=== PATIENT | male | born 1935 | race Caucasian/White ===

== ENCOUNTER 2017-02-05 15:21 | Emergency (ER) | payer MEDICARE, OTHER ==
[~2017-02-05] VITALS: Ht 180.3 cm; Wt 93.1 kg
[~2017-02-05 15:21] MED LIST: ALBU8.5H4 IH; ASP81TEC PO; CIPR500T95 PO; GLU500 PO; LOVA20TA7 PO; TELM80TA PO; TIOT18CA IH
--- NOTE | 2017-02-05 15:22 | ED.REPORT ---
HPI-Extremity Problem Lower Date of Service Feb 05, 2017 ED Provider: Dr. Navas Pt is an 81 year old male with a hx of a DM, HTN, afib, hip prosthetic and hip dislocations on Coumadin presenting to the ED complaining of right hip pain and probable dislocation. He reports that he has dislocated his hip 4 times. Medics state that he tripped over a blackberry combs, fell down and was lying on the side of the road for 45 minutes before somebody found him. He denies any head injury or any other symptoms at this time. Nursing Notes Stated Complaint: RT HIP DISLOCATION Chief Complaint: Rt hip pain Nursing Notes Reviewed: Yes Allergies: Coded Allergies: morphine (Verified Allergy, Unknown, UNKNOWN, 12/05/11) ketamine (Verified Adverse Reaction, Severe, "becomes violent", 02/12/16) Scheduled Albuterol-Expunged Drug, Do Not Renew! (Albuterol-Expunged Drug, Do Not Renew!) 8.5 Gm Hfa.aer.ad 2 PUFFS IH Q4 Aspirin-Expunged Drug, Do Not Renew! (Aspirin EC-Expunged Drug, Do Not Renew!) 81 Mg Tablet 81 MG PO DAILY INSTRUCTED TO STOP Ciprofloxacin (Cipro) 500 Mg Tablet 500 MG PO BID Lovastatin-Expunged Drug, Do Not Renew! (Mevacor-Expunged Drug, Do Not Renew!) 20 Mg Tablet 20 MG PO DAILY Metformin-Expunged Drug, Do Not Renew! (Metformin-Expunged Drug, Do Not Renew!) 500 Mg Tablet 500 MG PO DAILY Telmisartan-Expunged Drug, Do Not Renew! (Micardis-Expunged Drug, Do Not Renew! ) 80 Mg Tablet 80 MG PO DAILY Tiotropium Br-Expunged Drug, Do Not Renew! (Spiriva-Expunged Drug, Do Not Renew! ) 18 Mcg/Puff Pack 18 MCG IH DAILY Scheduled PRN oxyCODONE-Acetaminophen 5-325 mg (oxyCODONE-Acetaminophen 5-325 mg) 1 Each Tablet 1 TAB PO Q4H PRN PRN For Pain General Time Seen by MD: 15:21 Chief Complaint Hip injury right Hx Obtained From: Patient, EMS Arrived By: Ambulance Onset Occurred: Just prior to arrival Symptom Duration: Since onset Caused by: Fall on ground Location: : Hip right Quality: Painful Severity: Current: Moderate Severity: Maximum: Severe Recent Healthcare: No recent doctor visit, No recent hospitalization Similar Sx Previous: Yes Past Medical History Past Medical History Chronic Stage 3 Renal Disease Possible mild aortic stenosis Right hip prosthetic On Coumadin Afib Reports: Diabetes mellitus, Hypertension Past Surgical History Four previous dislocations of R hip and 2 surgeies on R hip Lower back surgery Reports: Knee replacement Family History Non contributory Smoking History Former Smoker Ambulatory Status Independent Review of Systems Constitutional: Denies: Weakness - generalized Musculoskeletal: Reports: Joint pain (Right hip) Neurologic: Denies: Change LOC, Headache Complete sys rev & neg: except as marked. Respiratory: Denies: Shortness of breath Cardiovascular: Denies: Chest pain GI: Denies: Abdominal pain, Vomiting Physical Exam Initial Vital Signs Vital Signs (First) Date Time Temp Pulse Resp B/P Pulse Ox O2 Delivery O2 Flow Rate FiO2 02/05/17 15:28 36.8 70 20 157/82 95 Nasal Cannula 2 Initial VS: Reviewed General/Constitutional: Well-developed, Well-nourished Head / Eyes: Atraumatic, Normocephalic, PERRL ENT: Mucous membranes moist, Conjunctiva normal, No scleral icterus Respiratory: Breath sounds normal, Clear to auscultation, No respiratory distress Abdomen / GI: Soft, Non-tender, No guarding, No rebound, No distention Upper Extremities: Vascular intact, Neuro intact, No swelling, No tenderness Skin: Warm, Dry, No cyanosis Neurologic: Alert, Oriented, Nonfocal Psychiatric: Mood/affect normal, Behavior normal, Normal thought content Lower Extremity / Pelvis / MS: Neurologic intact, Vascular intact Internally rotated right hip Cardiovascular: Heart rate NL, Regular rhythm Heart Sounds / Murmur: Positive: Systolic murmur present.. (II/) Interpretation & Diagnostics Lab Results Interpretation Result Diagram: 02/05/17 1650 02/05/17 1650 Test 02/05/17 16:50 White Blood Count 9.9th/mm3 (3.8-10.1) Red Blood Count 4.45mil/mm3 (4.40-5.80) Hemoglobin 14.0g/dL (13.8-17.2) Hematocrit 42.8% (41.0-50.0) Mean Corpuscular Volume 96.2fL (81-100) Mean Corpuscular Hemoglobin 31.5pg (27.0-35.0) Mean Corpuscular Hemoglobin Concent 32.7% (32.0-37.0) Red Cell Distribution Width 14.7% (12.3-15.4) Platelet Count 153bil/L (150-400) Neutrophils (%) (Auto) 74.6% (40-74) Lymphocytes (%) (Auto) 12.3% (14-46) Monocytes (%) (Auto) 10.1% (4-12) Eosinophils (%) (Auto) 1.3% (0-5) Basophils (%) (Auto) 0.4% (0-3) Prothrombin Time 24.8sec (8.1-12.5) Prothromb Time International Ratio 2.28ratio Sodium Level 141mEq/L (134-144) Potassium Level 4.8mEq/L (3.5-5.2) Chloride Level 105mEq/L (97-108) Carbon Dioxide Level 19mmol/L (18-29) Blood Urea Nitrogen 24mg/dL (8-27) Creatinine 1.22mg/dL (0.76-1.27) Estimat Glomerular Filtration Rate 61mL/min (>59) Glucose Level 114mg/dL (60-99) Calcium Level 8.9mg/dL (8.5-10.1) Total Bilirubin 1.1mg/dL (0.0-1.2) Aspartate Amino Transf (AST/SGOT) 40U/L (0-50) Alanine Aminotransferase (ALT/SGPT) 26U/L (0-44) Alkaline Phosphatase 68U/L (25-160) Total Protein 6.8g/dL (6.4-8.4) Albumin 3.3g/dL (3.4-5.0) Hold Otero Top Tube Received (Received) ECG Interpretation ECG Interpretation: Atrial fibrillation. Ventricular premature complex. Borderline ST depression, diffuse leads. Time: 16:38 Interpreted by: ED physician Abnormal Rate: 50 (54) X-Ray Interpretation Xray Interpretation: IMPRESSION: Posterosuperior right hip dislocation, status post total hip arthroplasty. No displaced fractures. Dictated by: Bruce Schmitt M.D. on 02/05/2017 at 15:18 XRAY RIGHT HIP POST REDUCTION: IMPRESSION: Appropriate alignment of the right total hip arthroplasty metallic components. No fractures are evident. Dictated by: Bruce Schmitt M.D. on 02/05/2017 at 15:21 X-Ray Ordered: Hip right Interpretation / Wet Read by: Interpret - Radiologist Procedures Proced Mod Sedation/Analgesia Time: 15:50 Procedure Performed by: ED physician Sedation Time: 10 - 15 min (11) Consent / Setup: Informed consent provided, Time-out performed, Hand hygiene observed, Stand sterile technique, Position supine Indication: Hip reduction Preparation: youth nutritional monitor applied, Pulse oximeter applied, Constant attendance, IV access established, Eval last meal time, Supplemental oxygen, Procedure explained, Suction available, End tidal CO2 mon applied VS Prior to Procedure: All vital signs normal Airway Exam: Normal facial anatomy CVS/Resp Exam: Normal breath sounds Neuro Exam: Alert, No acute distress, Responsive Sedation: Sedation: Propofol ASA Classification: 1 normal healthy patient Response During Procedure: Handled secretions adeq, Maintained airway well, Oxygenation stable, Sedation appropriate, Vital signs stable Reversal: None required Mental Status After Procedure: Alert, Oriented X3, Response to verbal stim, Normal per age, At patient's baseline Post-Procedure: Alert prior to discharge Attestation: I performed procedure, I performed sedation Reduction Post Dislocation Hip Good dorsalis pedis and posterior tibial pulses post reduction. Procedure: Closed reduction of non-buckland right hip Time: 15:50 Procedure Performed by: ED physician Consent / Timeout / Setup: Consent from patient, Time-out performed, Oxygen administered, Pulse oximeter applied, youth nutritional monitor applied, Hand hygiene observed, Stand sterile technique Procedural Sedation/Analgesia: Sedation: Propofol Which Hip and Technique: Right hip Neurovascular: Intact pre-procedure, Intact post-procedure Post-Procedure / Complications: Reduced per examination, Procedure successful, Condition improved, Tolerated procedure well, Patient stable Re-Eval/Medical Decision Re-Evaluation/Progress #1: Time of Eval: 15:33 Patient Status: Condition improved Re-Evaluation/Progress Note: Discussed plan for procedural sedation and dislocation reduction. Pt consents to the procedure. Re-Evaluation/Progress #2: Time of Eval: 15:40 Patient Status: Condition improved Re-Evaluation/Progress Note: Pt tolerated procedure well. Hip dislocation reduced. Re-Evaluation/Progress #3: Time of Eval: 16:10 Patient Status: Condition improved Re-Evaluation/Progress Note: Pt feeling much better. Re-Evaluation/Progress #4: Time of Eval: 17:01 Patient Status: Condition improved Re-Evaluation/Progress Note: Checked the pt's orthostatics. Discussed plan for discharge. Pt understands and agrees with plan. Counseled Regarding: Diagnosis, Lab results, Need for follow-up, When/why to return to ED Discharge & Departure Impression: Primary Impression: Hip dislocation, right Encounter type: initial encounter Qualified Code: S73.004A - Unspecified dislocation of right hip, initial encounter Additional Impression: Status post closed reduction of dislocated total hip prosthesis Disposition: Home Discharge Condition All VS Reviewed: Yes Condition: Improved Patient Instructions: Hip Dislocation (ED) Additional Instructions: Your right hip was dislocated. We were able to reduce it in the ER today. Return to the ER if you develop any new or worsening symptoms. Take pain medication as prescribed. Do not drink alcohol, drive, or operate heavy machinery while taking the pain medication. Follow-up with the orthopedist to discuss further treatment. Referrals: Maria Alejandra Thompson PA-C (PCP) Abby Kinney MD Attestation Portions of this note were transcribed by Viktoria Bobby. I, Dr. Navas personally performed the history, physical exam and medical decision-making; I reviewed and confirmed the accuracy of the information in the transcribed note. Signed by: Corinne Henry, 02/05/17 at 1716. copies to: Maria Alejandra Thompson PA-C; Abby Kinney MD, Kirk H MD Feb 05, 2017 15:22 VIKTORIA BOBBY Feb 05, 2017 15:25
[2017-02-05 15:28] VITALS: BP 157/82; PULSE 70; RESP 20; O2SAT 95
[2017-02-05] MEDS ORDERED: HYDROmorphone 1 mg/mL Inj IVPUSH PRN (15:30)
[2017-02-05] MEDS ORDERED: Propofol 10 mg/mL 20 mL Inj IVPUSH ONE (15:30)
--- NOTE | 2017-02-05 16:21 | DRSVH ---
PROCEDURE: X-RAY PELVIS W/LAT HIP (RT) ([id number]) INDICATIONS: TRAUMA TECHNIQUE: AP pelvis with lateral view(s) of the right hip(s). COMPARISON: [facility], CR, XR HIP 2VW RT, 02/12/2016, 18:22. [facility], CR , XR PELVIS W LATERAL HIP RT, 02/05/2017, 15:49. FINDINGS: Bones: Postoperative changes are present related to a right total hip arthroplasty. The femoral comp onent is dislocated superiorly and posteriorly with respect to the acetabular component. No displace d fractures are evident on the provided images. Severe degenerative changes of the included lower cheri mbar spine and moderate degenerative changes of the sacroiliac joints and left hip are noted. Soft tissues: The visualized bowel gas pattern is normal. No suspicious soft tissue calcifications. IMPRESSION: Posterosuperior right hip dislocation, status post total hip arthroplasty. No displaced fractures. Dictated by: Bruce Schmitt M.D. on 02/05/2017 at 15:18 Approved by: Bruce Schmitt M.D. on 02/05/2017 at 15:19
--- NOTE | 2017-02-05 16:24 | DRSVH ---
PROCEDURE: X-RAY PELVIS W/LAT HIP (RT) ([id number]) INDICATIONS: post reduction TECHNIQUE: AP pelvis with lateral view(s) of the right hip(s). COMPARISON: [facility], , XR PELVIS W LATERAL HIP RT, 02/05/2017, 15:40. FINDINGS: Interval closure reduction of the right hip is identified with the femoral component appropriately al igned with respect to the acetabulum. No periprosthetic fractures are identified. Degenerative cordova ges of the lumbosacral spine and left hip are unchanged. The overlying soft tissues are grossly unre markable. IMPRESSION: Appropriate alignment of the right total hip arthroplasty metallic components. No fractu res are evident. Dictated by: Bruce Schmitt M.D. on 02/05/2017 at 15:21 Approved by: Bruce Schmitt M.D. on 02/05/2017 at 15:22
[2017-02-05 16:55] LABS: BASOPHILS % (AUTO) 0.4 % (0-3); EOSINOPHILS % (AUTO) 1.3 % (0-5); MONOCYTES % (AUTO) 10.1 % (4-12); Mean Corpuscular Hemoglobin 31.5 pg (27.0-35.0); Mean Corpuscular Volume 96.2 fL (81-100); NEUTROPHILS % (AUTO) 74.6 % (40-74); Platelet Count 153 bil/L (150-400)
[2017-02-05 17:09] LABS: INR 2.28 ratio
[2017-02-05] MEDS ORDERED: OXYC1TAB24 PO (17:16)
[2017-02-05 17:21] VITALS: BP 139/69; PULSE 52; RESP 17; O2SAT 98
== END 2017-02-05 17:22 | disposition home or self-care (01) ==
LOC: SED 15:21
DX: T84.022A Instability of internal right knee prosthesis, initial encounter (principal); W01.0XXA Fall on same level from slipping, tripping and stumbling without subsequent striking against object, initial encounter; Y93.9 Activity, unspecified; Y92.410 Unspecified street and highway as the place of occurrence of the external cause; Y99.8 Other external cause status; I13.10 Hypertensive heart and chronic kidney disease without heart failure, with stage 1 through stage 4 chronic kidney disease, or unspecified chronic kidney disease; N18.3 Chronic kidney disease, stage 3 (moderate); E11.9 Type 2 diabetes mellitus without complications; I48.91 Unspecified atrial fibrillation; Z79.01 Long term (current) use of anticoagulants; Z87.891 Personal history of nicotine dependence; Z79.84 Long term (current) use of oral hypoglycemic drugs; Z79.82 Long term (current) use of aspirin; Z79.899 Other long term (current) drug therapy; Z88.5 Allergy status to narcotic agent; Z88.8 Allergy status to other drugs, medicaments and biological substances

== ENCOUNTER 2017-02-07 10:49 | Emergency (ER) | payer MEDICARE, OTHER ==
[~2017-02-07 10:49] MED LIST changes: +OXYC1TAB24 PO
--- NOTE | 2017-02-07 11:18 | ED.REPORT ---
HPI-Hip/Pelvis Prob/Inj Date of Service Feb 07, 2017 ED Provider: Abdi Costa DO The patient is an 81 year old male with history of chronic renal disease, diabetes mellitus, hypertension, atrial fibrillation on Coumadin, and previous right hip replacement, who was brought to the emergency department by EMS for a right hip injury. The patient was getting up from the couch when he twisted his leg and felt his right hip pop out. He has been unable to walk since onset. Medics administered a total of 150 micc Fentanyl for pain control. The patient was seen here a few days ago for the same. He denies any other injuries. Nursing Notes Stated Complaint: RIGHT HIP OUT OF PLACE Nursing Notes Reviewed: Yes Allergies: Coded Allergies: morphine (Verified Allergy, Unknown, UNKNOWN, 12/05/11) ketamine (Verified Adverse Reaction, Severe, "becomes violent", 02/12/16) Scheduled Albuterol-Expunged Drug, Do Not Renew! (Albuterol-Expunged Drug, Do Not Renew!) 8.5 Gm Hfa.aer.ad 2 PUFFS IH Q4 Aspirin-Expunged Drug, Do Not Renew! (Aspirin EC-Expunged Drug, Do Not Renew!) 81 Mg Tablet 81 MG PO DAILY INSTRUCTED TO STOP Ciprofloxacin (Cipro) 500 Mg Tablet 500 MG PO BID Lovastatin-Expunged Drug, Do Not Renew! (Mevacor-Expunged Drug, Do Not Renew!) 20 Mg Tablet 20 MG PO DAILY Metformin-Expunged Drug, Do Not Renew! (Metformin-Expunged Drug, Do Not Renew!) 500 Mg Tablet 500 MG PO DAILY Telmisartan-Expunged Drug, Do Not Renew! (Micardis-Expunged Drug, Do Not Renew! ) 80 Mg Tablet 80 MG PO DAILY Tiotropium Br-Expunged Drug, Do Not Renew! (Spiriva-Expunged Drug, Do Not Renew! ) 18 Mcg/Puff Pack 18 MCG IH DAILY Scheduled PRN oxyCODONE-Acetaminophen 5-325 mg (oxyCODONE-Acetaminophen 5-325 mg) 1 Each Tablet 1 TAB PO Q4H PRN PRN For Pain General Time Seen by Provider: 11:19 Chief Complaint Hip injury right Hx Obtained From: Patient, EMS Arrived By: Ambulance Onset Occurred: Just prior to arrival Symptom Duration: Since onset Progression Since Onset: Constant Quality: Painful Severity: Current: Severe Severity: Maximum: Severe Recent Healthcare: No recent hospitalization, Recent doctor visit Similar Sx Previous: Yes Past Medical History Past Medical History Chronic Stage 3 Renal Disease Possible mild aortic stenosis Right hip prosthetic On Coumadin Afib Reports: Diabetes mellitus, Hypertension Past Surgical History Multiple previous dislocations of R hip and 2 surgeries on R hip Lower back surgery Reports: Knee replacement Family History Non contributory Smoking History Former Smoker Social History Other Social History: Local resident Ambulatory Status Independent Review of Systems Musculoskeletal: Reports: Extremity pain, Joint pain, Denies: Back pain, Neck pain Neurologic: Denies: Headache Complete sys rev & neg: except as marked. Physical Exam Initial Vital Signs Vital Signs (First) Date Time Temp Pulse Resp B/P Pulse Ox O2 Delivery O2 Flow Rate FiO2 02/07/17 11:25 36.5 54 24 130/42 95 Room Air Initial VS: Reviewed ENT: Mucous membranes moist, Conjunctiva normal, No scleral icterus Neck: Supple, Non-tender, Full range of motion Respiratory: Breath sounds normal, Clear to auscultation, No respiratory distress Abdomen / GI: Soft, Non-tender, No guarding, No rebound, No distention Lymphatic: No lymphadenopathy Upper Extremities: Vascular intact, Neuro intact, No swelling, No tenderness Skin: Warm, Dry, No cyanosis Neurologic: Alert, Oriented, Nonfocal Psychiatric: Mood/affect normal, Behavior normal, Normal thought content Lower Extremity / Pelvis / MS: Neurologic intact, Vascular intact right hip is shortened, internally rotated, and tender. General/Constitutional: Awake, Alert, Cooperative Head / Eyes: Atraumatic, Normocephalic Pinpoint pupils Heart Rate / Rhythm: Positive: Irreg irregular rhythm Heart Sounds / Murmur: Positive: Systolic murmur present.. (II/, at the right upper sternal border) Interpretation & Diagnostics Interpretation & Diagnostics: Reviewed labs from 2 days ago, INR was 2.2 ECG Interpretation ECG Interpretation: Atrial fibrillation with a rate of [address] changes Time: 11:55 X-Ray Interpretation Xray Interpretation: IMPRESSION: Right hip dislocation. Dictated by: Jacklyn Yee M.D. on 02/07/2017 at 11:47 X-Ray Ordered: Pelvis Interpretation / Wet Read by: Interpret - Radiologist Xray Interpretation: IMPRESSION: Successful reduction of the right hip. Dictated by: Jacklyn Yee M.D. on 02/07/2017 at 12:34 X-Ray Ordered: Pelvis, Hip right Interpretation / Wet Read by: Interpret - Radiologist Procedures Proced Mod Sedation/Analgesia Time: 12:17 Procedure Performed by: ED physician Sedation Time: 10 - 15 min Consent / Setup: Informed consent provided, Consent from patient, Time-out performed, Hand hygiene observed, Position supine Indication: Hip reduction Preparation: compliance monitor applied, Pulse oximeter applied, Constant attendance, IV access established, Eval last meal time, Supplemental oxygen, Procedure explained, Suction available, End tidal CO2 mon applied VS Prior to Procedure: All vital signs normal Mallampati: Class & Anatomy: 3 hard pal/base uvula Airway Exam: Normal anatomy CVS/Resp Exam: Normal breath sounds, Normal heart sounds Neuro Exam: Alert, No acute distress Sedation: Sedation: Propofol (60) Response During Procedure: Handled secretions adeq, Maintained airway well, Oxygenation stable, Sedation appropriate, Vital signs stable Complications During/After: None Reversal: None required Mental Status After Procedure: Alert, Oriented X3, Response to verbal stim, Normal per age, At patient's baseline Post-Procedure: Alert prior to discharge, Ambulatory with assist, Pt rtn pre- proc baseline, Vital signs normal Attestation: I performed procedure, I performed sedation Reduction Post Dislocation Hip Time: 12:20 Procedure Performed by: ED physician Consent / Timeout / Setup: Informed consent provided, Consent from patient, Time-out performed, Oxygen administered, Pulse oximeter applied, compliance monitor applied, Hand hygiene observed Procedural Sedation/Analgesia: Sedation: Propofol (60) Which Hip and Technique: Right hip Neurovascular: Intact pre-procedure, Intact post-procedure Post-Procedure / Complications: Reduced per examination, Procedure successful, X-ray disloc reduced, Hip immobilized, Condition improved, Tolerated procedure well, Patient stable Re-Eval/Medical Decision Med Decision/Clinical Course Recurrent prosthetic hip dislocation reduced under procedural sedation. Neurovascularly intact after procedure, given knee immobilizer. Will be discharged. Return precautions given. Patient is asymptomatic to his bradycardia, he is instructed to follow-up closely with outpatient primary care or cardiology. Source of Hx: Old records, EMS Summary of Info: reviewed labs from 2 days prior Re-Evaluation/Progress #1: Time of Eval: 11:36 Re-Evaluation/Progress Note: Discussed procedure with the patient. He signed the consent forms. Re-Evaluation/Progress #2: Time of Eval: 12:14 Re-Evaluation/Progress Note: Rechecked the patient. Respiratory therapy is at bedside. Will start procedure. Re-Evaluation/Progress #3: Time of Eval: 12:21 Re-Evaluation/Progress Note: Paged x-ray. Re-Evaluation/Progress #4: Time of Eval: 13:02 Re-Evaluation/Progress Note: Rechecked the patient. He is awake and alert. Discussed plan for discharge. All questions were addressed. Counseled Regarding: Diagnosis, Need for follow-up, When/why to return to ED Discharge & Departure Impression: Primary Impression: Hip dislocation, right Encounter type: subsequent encounter Qualified Code: S73.004D - Unspecified dislocation of right hip, subsequent encounter Disposition: Home Discharge Condition All VS Reviewed: Yes Condition: Stable Patient Instructions: Hip Dislocation (ED) Additional Instructions: Thank you for entrusting us with your care today. We were able to put your hip back into place. Use the knee immobilizer to help prevent a future dislocation. Followup with your orthopedist to discuss further management of this. You should speak with your regular doctor about your low resting heart rate. Return to the emergency department for recurrent symptoms, numbness, weakness, or any other new or concerning symptoms. Referrals: Maria Alejandra Thompson PA-C (PCP) Scribe Attestation Portions of this note were transcribed by Bonnie Bruno. I, Dr. Costa personally performed the history, physical exam and medical decision-making; I reviewed and confirmed the accuracy of the information in the transcribed note. Signed by: Corinne Shepherd, 02/07/2017 at 1400. copies to: Maria Alejandra Thompson PA-C, Timothy S DO Feb 07, 2017 11:18 Bonnie Bruno Feb 07, 2017 11:22
[2017-02-07 11:25] VITALS: BP 130/42; PULSE 54; RESP 24; O2SAT 95
[2017-02-07] MEDS ORDERED: fentaNYL-PF 50 mCg/mL 2 mL Inj IVPUSH PRN (11:25)
[2017-02-07] MEDS ORDERED: Ondansetron 2 mg/mL 2 mL Inj IVPUSH PRN (11:25)
--- NOTE | 2017-02-07 11:49 | DRSVH ---
PROCEDURE: X-RAY PELVIS, ONE OR TWO VIEWS ([id number]) INDICATIONS: dislocation TECHNIQUE: Single view(s) of the pelvis acquired. COMPARISON: [facility], CR, XR PELVIS W LATERAL HIP RT, 02/05/2017, 15:49. FINDINGS: Bones: There is a dislocation of the right hip arthroplasty. No acute fracture. Soft tissues: Visualized bowel gas pattern is normal. No suspicious soft tissue calcifications. IMPRESSION: Right hip dislocation. Dictated by: Jacklyn Yee M.D. on 02/07/2017 at 11:47 Approved by: Jacklyn Yee M.D. on 02/07/2017 at 11:48
[2017-02-07] MEDS ORDERED: Propofol 10 mg/mL 20 mL Inj IVPUSH ONE (11:55)
--- NOTE | 2017-02-07 12:36 | DRSVH ---
PROCEDURE: X-RAY RIGHT HIP, ONE VIEW ([id number]) INDICATIONS: reduction TECHNIQUE: Single views of the hip were acquired. COMPARISON: [facility], CR, XR PELVIS 1 OR 2VW, 02/07/2017, 11:36. FINDINGS: Bones: There has been successful reduction of the right hip arthroplasty dislocation. Soft tissues: No suspicious soft tissue calcifications or masses. IMPRESSION: Successful reduction of the right hip. Dictated by: Jacklyn Yee M.D. on 02/07/2017 at 12:34 Approved by: Jacklyn Yee M.D. on 02/07/2017 at 12:34
[2017-02-07 14:31] VITALS: BP 122/51; PULSE 42; RESP 19; O2SAT 93
== END 2017-02-07 13:25 | disposition home or self-care (01) ==
LOC: EDBD 10:49 → SED 10:49
DX: T84.020A Dislocation of internal right hip prosthesis, initial encounter (principal); X50.9XXA Other and unspecified overexertion or strenuous movements or postures, initial encounter; Y93.89 Activity, other specified; Y99.8 Other external cause status; Y92.018 Other place in single-family (private) house as the place of occurrence of the external cause; I12.9 Hypertensive chronic kidney disease with stage 1 through stage 4 chronic kidney disease, or unspecified chronic kidney disease; N18.3 Chronic kidney disease, stage 3 (moderate); E11.9 Type 2 diabetes mellitus without complications; I48.91 Unspecified atrial fibrillation; Z96.659 Presence of unspecified artificial knee joint; Z96.641 Presence of right artificial hip joint; Z79.82 Long term (current) use of aspirin; Z79.01 Long term (current) use of anticoagulants; Z79.51 Long term (current) use of inhaled steroids; Z79.84 Long term (current) use of oral hypoglycemic drugs; Z88.4 Allergy status to anesthetic agent; Z88.5 Allergy status to narcotic agent